=== PATIENT | male | born 1955 | race Hispanic/Latino ===

== ENCOUNTER 2018-04-08 11:33 | Emergency (ER) | payer OTHER ==
[2018-04-08 11:52] VITALS: RESP 20
[2018-04-08 12:14] VITALS: BP 132/81; PULSE 82; TEMP 98.7; O2SAT 95
[2018-04-08] MEDS ORDERED: Absorbable Gelatin Sponge Size 12-7 ONE (12:56)
[2018-04-08 13:23] LABS: BASO % 0.4 % (0.0-2.0); EOS # 0.1 K/uL (0.0-0.7); EOS % 0.8 % (0.0-4.0); HEMOGLOBIN 15.2 g/dL (12.0-18.0); LYMPH # 1.3 K/uL (1.0-4.3); LYMPH % 12.7 % (20.0-40.0); MEAN CELL VOLUME 87.5 fL (80.0-94.0); MEAN CORPUSCULAR HEMOGLOBIN 30.9 pg (27.0-31.0); MEAN CORPUSCULAR HGB CONC 35.3 g/dL (33.0-37.0); MEAN PLATELET VOLUME 7.9 fL (7.2-11.7); MONO # 0.8 K/uL (0.0-0.8); NEUT % 78.1 % (50.0-75.0); RBC 4.92 Mil/uL (4.40-5.90); RED CELL DISTRIBUTION WIDTH 15.2 % (11.5-14.5); WHITE BLOOD COUNT 10.2 K/uL (4.8-10.8)
[2018-04-08 13:35] LABS: URINE BILIRUBIN NEGATIVE (NEGATIVE); URINE BLOOD 1+ (NEGATIVE); URINE CLARITY Clear (Clear); URINE COLOR Yellow (YELLOW); URINE GLUCOSE (UA) NORMAL (Normal); URINE LEUKOCYTE ESTERASE NEG Leu/uL (Negative); URINE PROTEIN 2+ mg/dL (NEGATIVE); URINE UROBILINOGEN NORMAL mg/dL (0.2-1.0)
[2018-04-08 13:38] LABS: ALB/GLOB RATIO 1.7 (1.0-2.1); ALBUMIN 4.8 g/dL (3.5-5.0); ALT/SGPT 43 U/L (21-72); AST/SGOT 43 U/L (17-59); BLOOD UREA NITROGEN 15 mg/dL (9-20); CALCIUM 9.1 mg/dl (8.6-10.4); GFR AFRICAN-AMERICAN > 60; GFR NON-AFRICAN AMERICAN > 60
[2018-04-08 13:41] LABS: ACETAMINOPHEN < 10.0 ug/mL (10.0-30.0); SALICYLATE < 1.0 mg/dL 1
[2018-04-08 13:44] LABS: PROTHROMBIN TIME 11.4 SECONDS (9.7-12.2)
[2018-04-08 13:46] LABS: BARBITURATES, UR NEGATIVE (NEGATIVE); BENZODIAZEPINES, UR NEGATIVE (NEGATIVE); PHENCYCLIDINE, UR NEGATIVE (NEGATIVE)
--- NOTE | 2018-04-08 13:53 | CT ---
PROCEDURE: CT HEAD WITHOUT CONTRAST. HISTORY: AMS COMPARISON: None available. TECHNIQUE: Axial computed tomography images were obtained through the head/brain without intravenous contrast. Radiation dose: Total exam DLP = 987.78 mGy-cm. This CT exam was performed using one or more of the following dose reduction techniques: Automated exposure control, adjustment of the mA and/or kV according to patient size, and/or use of iterative reconstruction technique. . FINDINGS: HEMORRHAGE: No acute parenchymal, subarachnoid or extra-axial hemorrhage. BRAIN: Moderate diffuse/ confluent chronic periventricular white matter ischemic changes seen extending peripherally into the deep the subcortical white matter both cerebral hemispheres. In addition, there is several small chronic appearing lacunar type infarcts scattered about both basal nuclei. Enlarged left wing of the cisterna magna. No obvious parenchymal nor extra-axial masses seen on this noncontrast exam. . Moderate generalized volume loss. Vascular calcifications both carotid siphons and vertebral arteries VENTRICLES: Unremarkable. No hydrocephalus. CALVARIUM: No acute calvarial fractures. Old bilateral nasal bone fracture deformities are present. PARANASAL SINUSES: Frontal sinuses are underpneumatized/ hypoplastic. Minor mucosal thickening seen within the ethmoid air complex extending MASTOID AIR CELLS: Unremarkable as visualized. No inflammatory changes. OTHER FINDINGS: None. IMPRESSION: No acute intracranial hemorrhage. Moderate to significant chronic white matter ischemic changes. Scattered chronic bilateral basal nuclei lacunar type infarcts. Moderate generalized volume loss. Enlarged left wing of the cisterna magna.
[2018-04-08 14:02] LABS: OPIATES, UR POSITIVE (NEGATIVE)
--- NOTE | 2018-04-08 14:02 | C.PDOC ---
History Of Present Illness 62-year-old male presents to the ED for evaluation of a laceration to his right hand. Patient states he accidentally cut his hand on the door just prior to arrival. Patient states that his cleaning lady brought "three monkeys to the house with her" . She closed the door and when he tried to open it, he cut his hand. Patient denies auditory/visual hallucinations, drug abuse, or suicidal/ homicidal ideation at this time. Of note, police report not seeing the monkeys. Time Seen by Provider: 04/08/18 11:58 Chief Complaint (Nursing): Abnormal Skin Integrity History Per: Patient History/Exam Limitations: no limitations Onset/Duration Of Symptoms: Hrs Current Symptoms Are (Timing): Still Present Additional History Per: Patient Past Medical History Reviewed: Historical Data, Nursing Documentation, Vital Signs Vital Signs: Last Vital Signs Temp 98.7 F 04/08/18 12:13 Pulse 82 04/08/18 12:13 Resp 20 04/08/18 12:13 BP 132/81 04/08/18 12:13 Pulse Ox 95 04/08/18 15:06 - Medical History PMH: Asthma, Bronchitis, COPD, HTN, Hypercholesterolemia Surgical History: No Surg Hx Family History: States: Unknown Family Hx - Social History Hx Alcohol Use: No Hx Substance Use: No - Immunization History Hx Tetanus Toxoid Vaccination: No Hx Influenza Vaccination: No Hx Pneumococcal Vaccination: No Review Of Systems Skin: Positive for: Other (laceration to right hand ) Psych: Negative for: Suicidal ideation Physical Exam - Physical Exam Appears: Non-toxic, No Acute Distress, Other (pt is pleasant and cooperative) Skin: Warm, Dry, Other (0.5cm superficial avulsion to dorsal aspect of right hand. Some bleeding persists. ) Head: Atraumatic, Normacephalic Eye(s): bilateral: Normal Inspection, PERRL, EOMI Nose: Normal Oral Mucosa: Moist Neck: Normal ROM, Supple Chest: Symmetrical, No Deformity, No Tenderness Cardiovascular: Rhythm Regular Respiratory: Normal Breath Sounds, No Rales, No Rhonchi, No Wheezing Gastrointestinal/Abdominal: Soft, No Tenderness, Hernia (reducible umbilical), Other (obese ) Extremity: Normal ROM, Capillary Refill (less than 2 seconds ) Neurological/Psych: Oriented x3, Normal Speech, Normal Cognition Gait: Steady ED Course And Treatment - Laboratory Results Result Diagrams: 04/08/18 13:14 06/22/18 13:14 O2 Sat by Pulse Oximetry: 95 (on RA) Pulse Ox Interpretation: Normal - CT Scan/US CT Head Other Rad Studies (CT/US): Interpreted By Me, Read By Radiologist, Radiology Report Reviewed CT/US Interpretation: PROCEDURE: CT HEAD WITHOUT CONTRAST. HISTORY: AMS. COMPARISON: None available. TECHNIQUE: Axial computed tomography images were obtained through the head/brain without intravenous contrast. Radiation dose: Total exam DLP = 987.78 mGy-cm. This CT exam was performed using one or more of the following dose reduction techniques: Automated exposure control, adjustment of the mA and/or kV according to patient size, and/or use of iterative reconstruction technique. . FINDINGS: HEMORRHAGE: No acute parenchymal, subarachnoid or extra-axial hemorrhage. BRAIN: Moderate diffuse/ confluent chronic periventricular white matter ischemic changes seen extending peripherally into the deep the subcortical white matter both cerebral hemispheres. In addition, there is several small chronic appearing lacunar type infarcts scattered about both basal nuclei. Enlarged left wing of the cisterna magna. No obvious parenchymal nor extra-axial masses seen on this noncontrast exam. . Moderate generalized volume loss. Vascular calcifications both carotid siphons and vertebral arteries. VENTRICLES: Unremarkable. No hydrocephalus. CALVARIUM: No acute calvarial fractures. Old bilateral nasal bone fracture deformities are present. PARANASAL SINUSES: Frontal sinuses are underpneumatized/ hypoplastic. Minor mucosal thickening seen within the ethmoid air complex extending. MASTOID AIR CELLS: Unremarkable as visualized. No inflammatory changes. OTHER FINDINGS: None. IMPRESSION: No acute intracranial hemorrhage. Moderate to significant chronic white matter ischemic changes. Scattered chronic bilateral basal nuclei lacunar type infarcts. Moderate generalized volume loss. Enlarged left wing of the cisterna magna. Progress Note: Bloodwork, urinalysis, and CT Head ordered and reviewed. Wound cleansed, gel foam applied and dressed by RN. Patient was evaluated by social worker clinical Deepti, who cleared him for discharge. Pt denies pyschiatric h/o. PT is A &O x 3.Denies HI or SI. Patient declined admission for further evaluation. Instructed to return to ER if symptoms persist or worsen. Case disucssed with Dr Pérez, agreed upon plan and discharge. Medical Decision Making Medical Decision Making: The patient declines to have further medical evaluation and treatment and wishes to leave the Emergency Department. This action is against my medical advice to the patient and with informed refusal. The patient was told that evaluation and treatment are necessary and a full explanation of the rationale was given. The risks of leaving were explained to the patient and include, but are not limited to, worsening of known or currently unknown conditions, permanent disability and from undiagnosed or untreated conditions. Based on my conversations with the patient, the patient has the capacity to make this informed decision and understands the clinical situation and my explanation of the risks of leaving. The patient voluntarily accepts these risks and a signed AMA form documenting our conversation was obtained . The patient was given the opportunity to ask questions and reconsider. The patient was encouraged to return to the Emergency Department at any time for further evaluation. Disposition - Disposition Disposition: AGAINST MEDICAL ADVICE Disposition Time: 14:01 Condition: STABLE Additional Instructions: Follow up with your primary docotor in 1-2 days. Keep area clean and dry. Watch for signs of infection, return to ER if symptoms persist or worsen. Instructions: Wound Care (DC) Forms: [employer] (Greenlandic), (AMA) Informed Refusal - Clinical Impression Clinical Impression: Hand laceration - PA / [employer] / Resident Statement MD/DO has reviewed & agrees with the documentation as recorded. - Scribe Statement The provider has reviewed the documentation as recorded by the Scribe (Shonda Andujar) All medical record entries made by the Scribe were at my direction and personally dictated by me. I have reviewed the chart and agree that the record accurately reflects my personal performance of the history, physical exam, medical decision making, and the department course for this patient. I have also personally directed, reviewed, and agree with the discharge instructions and disposition.
== END 2018-04-08 14:16 | disposition left against medical advice (07) ==
LOC: C.ER 11:33
DX: S61.411A Laceration without foreign body of right hand, initial encounter (principal); W45.8XXA Other foreign body or object entering through skin, initial encounter